=== PATIENT | male | born 1955 | race Caucasian/White ===

== ENCOUNTER 2017-04-13 09:02 | Inpatient (IN) | payer OTHER ==
[~2017-04-13 09:02] MED LIST: BEN25 PO; CENTRUM PO; FLONASE NAS; FORTAMET1000 MG PO; INVOKANA300 MG PO; MOVE FREE JOIN1 EACH PO; SINGULAIR1 PO; SYN.05 PO; VICTOZA18 MG/3 ML SC; VITD PO; VYTORIN 10/40 T1 TAB PO; ZYRTEC ALLGY10 MG PO
[2017-04-13 12:26] LABS: CPK 85 U/L (0-200)
[2017-04-13 12:31] LABS: CK-MB 0.6 NG/ML
[2017-04-13 20:39] LABS: CPK 71 U/L (0-200)
[2017-04-13 20:40] LABS: CK-MB 1.1 NG/ML
[2017-04-14 03:36] LABS: BUN (BLOOD UREA NITROGEN) 14 MG/DL (6-23); CALCIUM, SERUM 8.4 MG/DL (8.5-10.4); CHLORIDE, SERUM 109 MMOL/L (96-112); CK-MB 1.3 NG/ML; CO2 (CARBON DIOXIDE) 29 MMOL/L (24-34); CPK 64 U/L (0-200); CREATININE 0.85 MG/DL (0.70-1.30); GFR AFRICAN AMERICAN 110 ML/MIN (>=60); GFR NON AFRICAN AMERICAN 95 ML/MIN (>=60); GLUCOSE, SERUM 123 MG/DL (60-99); SODIUM, SERUM 144 MMOL/L (135-148)
[2017-04-14] MEDS ORDERED: IBU600 PO (09:44)
[2017-04-14] MEDS ORDERED: COLCH6 PO (09:45)
== END 2017-04-14 12:59 | disposition home or self-care (01) | DRG 287 ==
LOC: SSU2 09:02 → SSU1 10:09 → 7NO 11:41
PROVIDERS: Internal Medicine Cardiovascular Disease
PROC: 4A023N7 Measurement of Cardiac Sampling and Pressure, Left Heart, Percutaneous Approach (ICD-10-PCS; principal; 2017-04-13)
PROC: B2111ZZ Fluoroscopy of Multiple Coronary Arteries using Low Osmolar Contrast (ICD-10-PCS; 2017-04-13)
PROC: B2151ZZ Fluoroscopy of Left Heart using Low Osmolar Contrast (ICD-10-PCS; 2017-04-13)
DX: I31.9 Disease of pericardium, unspecified (principal); E03.9 Hypothyroidism, unspecified; E11.9 Type 2 diabetes mellitus without complications; I25.10 Atherosclerotic heart disease of native coronary artery without angina pectoris; E78.5 Hyperlipidemia, unspecified; Z88.5 Allergy status to narcotic agent; Z79.899 Other long term (current) drug therapy; Z79.51 Long term (current) use of inhaled steroids; Z88.8 Allergy status to other drugs, medicaments and biological substances; Z91.02 Food additives allergy status; Z82.49 Family history of ischemic heart disease and other diseases of the circulatory system; Z79.84 Long term (current) use of oral hypoglycemic drugs
CPT/HCPCS: 71010; 80048; 80061; 80076; 82550; 82553; 82962; 83036; 83735; 84443; 84484; 85025; 85610; 85730; 93005; 93458; 96374; 96376; 99152; 99285; A9270-GY; C1760; C1769; C1894; C8929; G0378; J2250; J3010; Q9957; Q9967